=== PATIENT | female | born 1930 | race Caucasian/White ===

== ENCOUNTER 2016-11-30 08:00 | Outpatient (CLI) | payer MEDICARE | END 2016-11-30 08:01 | disposition home or self-care (01) | DX: E11.9 Type 2 diabetes mellitus without complications (principal) ==

== ENCOUNTER 2017-01-07 10:42 | Outpatient (CLI) | payer MEDICARE | END 2017-01-07 10:43 | disposition home or self-care (01) | DX: S92.512A Displaced fracture of proximal phalanx of left lesser toe(s), initial encounter for closed fracture (principal); M16.0 Bilateral primary osteoarthritis of hip; M19.072 Primary osteoarthritis, left ankle and foot; M79.89 Other specified soft tissue disorders; M79.672 Pain in left foot; R10.2 Pelvic and perineal pain; Z91.81 History of falling ==

== ENCOUNTER 2017-01-18 12:34 | Emergency (ER) | payer MEDICARE ==
[2017-01-18] MEDS ORDERED: ACETAMINOPHEN 325 MG TABLET PO STA (14:08)
[2017-01-18] MEDS ORDERED: traMADol 50 MG TABLET PO STA (14:09)
[2017-01-18] MEDS ORDERED: traMADol 50 MG TABLET PO ONE (14:10)
[2017-01-18] MEDS ORDERED: ACETAMINOPHEN 325 MG TABLET PO ONE (14:11)
[2017-01-18] MEDS ORDERED: RIVAROXABAN 15 MG TABLET PO STA (15:54)
[2017-01-18] MEDS ORDERED: HYDROcod/ACETAM 5/325 MG TABLET PO STA (15:56)
[2017-01-18] MEDS ORDERED: HYDROcod/ACETAM 5/325 MG TABLET ONE (16:05)
== END 2017-01-18 16:15 | disposition home or self-care (01) ==
DX: I82.4Z1 Acute embolism and thrombosis of unspecified deep veins of right distal lower extremity (principal); W01.10XA Fall on same level from slipping, tripping and stumbling with subsequent striking against unspecified object, initial encounter; I48.91 Unspecified atrial fibrillation; Z79.01 Long term (current) use of anticoagulants; I10 Essential (primary) hypertension; E11.9 Type 2 diabetes mellitus without complications; Z79.84 Long term (current) use of oral hypoglycemic drugs
CPT/HCPCS: 36415; 80053; 83690; 85025; 93971; 99283; 99284; A9270

== ENCOUNTER 2017-01-28 15:33 | Emergency (ER) | payer MEDICARE ==
[2017-01-28] MEDS ORDERED: SODIUM CHLORIDE 0.9% 500 ML IV ONE (17:51)
[2017-01-28] MEDS ORDERED: cefTRIAXone 1 GM in SODIUM CHLORIDE 0.9% MINIBAG 100 ML IV STA (17:56)
[2017-01-28] MEDS ORDERED: cefTRIAXone 1 GM VIAL ONE (18:04)
== END 2017-01-28 19:10 | disposition home or self-care (01) ==
DX: R22.42 Localized swelling, mass and lump, left lower limb (principal); N39.0 Urinary tract infection, site not specified; I10 Essential (primary) hypertension; I48.91 Unspecified atrial fibrillation; Z79.01 Long term (current) use of anticoagulants; E11.9 Type 2 diabetes mellitus without complications; Z79.84 Long term (current) use of oral hypoglycemic drugs; Z95.0 Presence of cardiac pacemaker; Z85.3 Personal history of malignant neoplasm of breast

== ENCOUNTER 2017-11-03 11:12 | Emergency (ER) | payer MEDICARE ==
[2017-11-03 11:17] VITALS: BP 176/100
--- NOTE | 2017-11-03 12:37 | ED Physician Documentation ---
History of Present Illness - Stated complaint Stated Complaint: R HAND SWOLLEN - Chief complaint Chief Complaint: Ext Problem - History obtained from History obtained from: Patient, Family - History of Present Illness Timing: Other (Without specific trauma she noted that she had difficulty bending the right fourth finger at the MCP about a month ago which got better but over the last day or 2 has had whole hand swelling on the right and now cannot bend any of the fingers because of pain in the proximal palm. There is no associated fevers, chills, shortness of breath, or chest pain.) Review of Systems Constitutional: denies: Fever, Chills Respiratory: reports: Reviewed and negative GI: reports: Reviewed and negative : reports: Reviewed and negative Skin: reports: Reviewed and negative PD PAST MEDICAL HISTORY - Past Medical History Past Medical History: Yes Cardiovascular: Hypertension, Atrial fibrillation, Other Respiratory: None Neuro: Headache/migraine Endocrine/Autoimmune: Type 2 diabetes GI: Chronic constipation MODEL MAKER: None, Breast cancer : Incontinence HEENT: Other Psych: Anxiety Musculoskeletal: Chronic back pain Derm: None - Past Surgical History Past Surgical History: Yes Ortho: Knee replacement, Shoulder arthroplasty, Spine surgery Cardiovascular: Pacemaker, Fempop bypass - Present Medications Home Medications: Ambulatory Orders Medication Instructions Recorded Confirmed Allopurinol 100 mg ORAL DAILY 06/17/15 11/03/17 Anastrozole 1 mg ORAL DAILY 06/17/15 11/03/17 Diltiazem HCl [Cartia Xt] 240 mg ORAL DAILY 06/17/15 11/03/17 Furosemide 40 mg ORAL DAILY 06/17/15 11/03/17 Gabapentin 100 mg ORAL DAILY 06/17/15 11/03/17 Glipizide [Glipizide ER] 2.5 mg ORAL DAILY 06/17/15 11/03/17 Potassium Chloride 10 meq ORAL DAILY 06/17/15 11/03/17 Ferrous Sulfate 1 tab ORAL DAILY 09/24/16 11/03/17 Hydrocodone/Acetaminophen [[place] 1 each PO TID PRN #20 tablet 01/18/17 11/03/17 5-325 Tablet] Rivaroxaban [Xarelto] 15 mg PO BID #42 tablet 01/18/17 11/03/17 Mirtazapine 15 mg PO DAILY 01/28/17 11/03/17 Omeprazole 40 mg PO DAILY 01/28/17 11/03/17 HYDROcod/ACETAM 5/325 [[place] 5/325] 1 - 2 ea PO Q6H PRN #10 tablet 11/03/17 metOLazone [Zaroxolyn] 2.5 mg PO DAILY PRN 11/03/17 11/03/17 - Allergies Allergies/Adverse Reactions: Allergies Allergy/AdvReac Type Severity Reaction Status Date / Time No Known Drug Allergies Allergy Verified 11/03/17 11:17 - Social History Does the pt smoke?: No Smoking Status: Never smoker Does the pt drink ETOH?: No Does the pt have substance abuse?: No - Family History Family history: reports: Non contributory - Immunizations Immunizations are current?: Yes - POLST Patient has POLST: No PD ED PE NORMAL - Vitals Vital signs reviewed: Yes - General General: Alert and oriented X 3, No acute distress - Extremities Extremities: Other (The right hand is tender dorsally over the mid carpals, and she has pain with forced extension but not flexion. Inversion and eversion is relatively painless. I can bend all the fingers back and forth without significant pain. She is swollen over the entirety of the dorsal surface of the hand to just proximal to the wrist. There is no warmth. There is no redness.) - Neuro Neuro: Alert and oriented X 3, Normal speech Results - Vitals Vitals: Vital Signs - 24 hr 11/03/17 11:14 Temperature 36.5 C Heart Rate 71 Respiratory 18 Rate Blood Pressure 176/100 H O2 Saturation 98 Oxygen O2 Source Room air - Labs Labs: Laboratory Tests 11/03/17 11/03/17 12:50 12:50 WBC 7.3 RBC 4.62 Hgb 12.8 Hct 39.2 MCV 84.7 MCH 27.8 MCHC 32.8 RDW 15.6 H Plt Count 122 L MPV 9.9 Neut # 5.9 Lymph # 0.8 L Da[place]hin # 0.4 Eos # 0.2 Baso # 0.1 Absolute Nucleated RBC 0.00 Nucleated RBC % 0.0 Sodium 139 Potassium 4.5 Chloride 102 Carbon Dioxide 26 Anion Gap 11.0 BUN 13 Creatinine 1.0 Estimated GFR (MDRD) 52 L Glucose 126 H Uric Acid 6.2 Calcium 9.7 C-Reactive Protein 3.9 H - Rads (name of study) R hand 3v Radiology: EMP read contemporaneously (marked OA) PD MEDICAL DECISION MAKING - ED course ED course: 87-year-old woman presents with atraumatic pain of the right hand and distal wrist, no evidence of infection based on history and physical. Seems like some sort of arthritis, lab work and exam suggest against an infection or inflammatory process, probably just a exacerbation of severe osteoarthritis. Departure - Departure Disposition: 01 Home, Self Care Clinical Impression: Arthritis of hand, right Condition: Good Record reviewed to determine appropriate education?: Yes Instructions: Osteoarthritis Prescriptions: HYDROcod/ACETAM 5/325 [[place] 5/325] 1 - 2 ea PO Q6H PRN #10 tablet PRN Reason: Pain Comments: You can take the prescription painkiller when pain is bad, if pain is only mild to try to stick to Tylenol. Return if worse. Follow-up with your doctor in a week. Your blood pressure was elevated today on check into the emergency department. This does not mean that you have hypertension, it is a common phenomenon to come to the emergency department and have elevated blood pressure. I recommend that you see your primary care physician within the week to have it rechecked when you are feeling better. Do not drink or drive while taking narcotic pain medication. Note that many narcotic pain relievers also contain Tylenol/acetaminophen. Please ensure that your total dose of acetaminophen from all sources does not exceed 3 g (3000 mg) per day. You may get constipated while on this medication. Take a stool softener such as Colace twice a day while you are on it. Also add an [id number] laxative such as senna or MiraLAX on any day that you do not have a bowel movement. If you received a narcotic pain medication or sedative while in the emergency department, do not drive for the next 24 hours.
[2017-11-03 12:57] LABS: BASOPHILS # (AUTO) 0.1 10^3/uL (0.0-0.1); BASOPHILS % (AUTO) 0.9 %; EOSINOPHILS # (AUTO) 0.2 10^3/uL (0.0-0.7); EOSINOPHILS % (AUTO) 2.8 %; HGB - HEMOGLOBIN 12.8 g/dL (12.0-16.0); LYMPHOCYTES # (AUTO) 0.8 10^3/uL (1.5-3.5); LYMPHOCYTES % (AUTO) 10.4 %; MEAN CORPUSCULAR HEMOGLOBIN 27.8 pg (27.0-31.0); MEAN CORPUSCULAR HGB CONC 32.8 g/dL (32.0-36.0); MEAN CORPUSCULAR VOLUME 84.7 fL (81.0-99.0); MEAN PLATELET VOLUME 9.9 fL (7.9-10.8); MONOCYTES # (AUTO) 0.4 10^3/uL (0.0-1.0); MONOCYTES % (AUTO) 5.5 %; NEUTROPHILS # (AUTO) 5.9 10^3/uL (1.5-6.6); NEUTROPHILS % (AUTO) 80.4 %; PLT - PLATELET COUNT 122 10^3/uL (130-450); RED BLOOD COUNT 4.62 10^6/uL (4.20-5.40); RED CELL DISTRIBUTION WIDTH 15.6 % (12.0-15.0); WHITE BLOOD COUNT 7.3 x10^3/uL (4.8-10.8)
[2017-11-03 13:14] LABS: CALCIUM 9.7 mg/dL (8.5-10.3); CRP - C-REACTIVE PROTEIN 3.9 mg/dL (0-1.0); URIC ACID 6.2 mg/dL (2.6-7.2)
--- NOTE | 2017-11-03 13:24 | XRAY Report ---
EXAM: RIGHT HAND RADIOGRAPHY EXAM DATE: 11/03/2017 12:56 PM. CLINICAL HISTORY: Hand pain. COMPARISON: None. TECHNIQUE: 3 views. FINDINGS: Bones: Marked osteopenia. Old ununited radial styloid process fracture. No acute fracture or other mika ne lesion. Joints: Marked degenerative changes in the DIP and PIP joints, with severe degenerative changes of th e first CMC joint. Mild narrowing of MCP joint spaces. No erosions. Chondrocalcinosis in the carpus. Soft Tissues: Soft tissue swelling. IMPRESSION: Marked osteoarthritis. [facility] Referring Provider Line: [phone] SITE ID: [id number]
== END 2017-11-03 13:49 | disposition home or self-care (01) ==
LOC: ED 11:12
DX: M19.041 Primary osteoarthritis, right hand (principal); I10 Essential (primary) hypertension; I48.91 Unspecified atrial fibrillation; Z79.01 Long term (current) use of anticoagulants; E11.9 Type 2 diabetes mellitus without complications; Z79.84 Long term (current) use of oral hypoglycemic drugs; Z85.3 Personal history of malignant neoplasm of breast; Z95.0 Presence of cardiac pacemaker
CPT/HCPCS: 36415; 80048; 84550; 85025; 86140; 99283

== ENCOUNTER 2018-05-04 09:03 | Outpatient (CLI) | payer MEDICARE ==
[2018-05-04 09:28] LABS: BASOPHILS % (AUTO) 0.4 %; EOSINOPHILS # (AUTO) 0.2 10^3/uL (0.0-0.7); HGB - HEMOGLOBIN 12.6 g/dL (12.0-16.0); LYMPHOCYTES # (AUTO) 0.5 10^3/uL (1.5-3.5); LYMPHOCYTES % (AUTO) 8.6 %; MEAN CORPUSCULAR HEMOGLOBIN 29.5 pg (27.0-31.0); MEAN CORPUSCULAR HGB CONC 32.9 g/dL (32.0-36.0); MEAN CORPUSCULAR VOLUME 89.6 fL (81.0-99.0); MEAN PLATELET VOLUME 10.1 fL (7.9-10.8); MONOCYTES # (AUTO) 0.3 10^3/uL (0.0-1.0); MONOCYTES % (AUTO) 5.2 %; NEUTROPHILS # (AUTO) 5.1 10^3/uL (1.5-6.6); NEUTROPHILS % (AUTO) 82.8 %; PLT - PLATELET COUNT 96 10^3/uL (130-450); RED BLOOD COUNT 4.26 10^6/uL (4.20-5.40); RED CELL DISTRIBUTION WIDTH 15.2 % (12.0-15.0); WHITE BLOOD COUNT 6.2 x10^3/uL (4.8-10.8)
[2018-05-04 09:34] LABS: ALBUMIN 3.1 g/dL (3.2-5.5); ALBUMIN/GLOBULIN RATIO 0.9 (1.0-2.2); ALKALINE PHOSPHATASE 126 IU/L (42-121); ALT ALANINE AMINOTRANSFERASE < 10 IU/L (10-60); AST ASPARTATE AMINOTRANSFERASE 21 IU/L (10-42); BILIRUBIN,TOTAL 0.6 mg/dL (0.2-1.0); BUN - BLOOD UREA NITROGEN 13 mg/dL (6-20); CALCIUM 8.8 mg/dL (8.5-10.3); CARBON DIOXIDE - CO2 25 mmol/L (21-32); CHLORIDE 103 mmol/L (101-111); GFR - MDRD 52 (>89); GLUCOSE 173 mg/dL (70-100); SODIUM 137 mmol/L (135-145); TOTAL PROTEIN 6.7 g/dL (6.7-8.2)
== END 2018-05-04 09:04 | disposition home or self-care (01) ==
LOC: LAB 09:03
PROVIDERS: ATTEND Internal Medicine Cardiovascular Disease
DX: I48.91 Unspecified atrial fibrillation (principal)
CPT/HCPCS: 36415; 80053; 85025

== ENCOUNTER 2018-05-29 14:06 | Outpatient (CLI) | payer MEDICARE ==
--- NOTE | 2018-05-29 15:21 | Ultrasound Report ---
Procedure Date: 05/29/2018 Accession Number: [id number] / [id number] Procedure: US - Breast Unilateral Limited CPT Code: FULL RESULT: EXAM: Breast Unilateral Limited DATE: 05/29/2018 3:11 PM CLINICAL HISTORY: MASTODYNIA COMPARISON: None. TECHNIQUE: Grayscale and limited color Doppler images of the tender left chest wall/region of prior mastectomy were obtained. FINDINGS: Underneath the scar a 4 mm x 4 mm x 3 mm cystic structure is identified with no flow on color Doppler. This finding corresponds to the focal area of tenderness. No solid mass is identified. IMPRESSION: The 4 mm collection deep to the chest wall scar corresponds to the patient's area of tenderness. There are no sonographic features to suggest abscess formation though this is not entirely excluded. Likely small seroma. [facility]
== END 2018-05-29 14:07 | disposition home or self-care (01) ==
LOC: DI 14:06
PROVIDERS: ATTEND Internal Medicine
DX: N64.4 Mastodynia (principal)
CPT/HCPCS: 76642

== ENCOUNTER 2018-05-29 14:40 | Outpatient (CLI) | payer MEDICARE | END 2018-05-29 14:41 | disposition home or self-care (01) | LOC: DI 14:40 | PROVIDERS: ATTEND Internal Medicine | DX: Z12.31 Encounter for screening mammogram for malignant neoplasm of breast (principal); N64.4 Mastodynia | CPT/HCPCS: 77067 ==

== ENCOUNTER 2018-07-13 11:15 | Outpatient (CLI) | payer MEDICARE ==
[2018-07-13] MEDS ORDERED: IOPAMIDOL-300 100 ML VIAL ONE (11:33)
[2018-07-13] MEDS ORDERED: IOPAMIDOL-300 50 ML VIAL ONE (11:33)
[2018-07-13] MEDS ORDERED: IOPAMIDOL-300 50 ML VIAL PO ONE (19:08)
[2018-07-13] MEDS ORDERED: IOPAMIDOL-300 100 ML VIAL IVP ONE (19:08)
--- NOTE | 2018-07-15 08:32 | CT Report ---
Reason: NAUSEA, VOMITING AND DIARRHEA X 1 WK Procedure Date: 07/13/2018 Accession Number: [id number] / [id number] Procedure: CT - Abdomen/Pelvis W/ CPT Code: FULL RESULT: EXAM: CT ABDOMEN AND PELVIS EXAM DATE: 07/13/2018 12:37 PM. CLINICAL HISTORY: NAUSEA, VOMITING AND DIARRHEA X 1 WK. COMPARISONS: 09/24/16. TECHNIQUE: Routine helical CT imaging was performed through the abdomen and pelvis. IV contrast: ISOVUE 300 100mL. Enteric contrast: Yes. Reconstructions: Coronal and sagittal. In accordance with CT protocol optimization, one or more of the following dose reduction techniques were utilized for this exam: automated exposure control, adjustment of mA and/or KV based on patient size, or use of iterative reconstructive technique. FINDINGS: Lung Bases: Unremarkable. Liver: No masses. Gallbladder/Bile Ducts: Cholelithiasis. Spleen: Normal. Pancreas: Normal. Adrenal Glands: Normal. Kidneys: No masses or hydronephrosis. Peritoneal Cavity/Bowel: No free air. Oral contrast seen in the stomach to the mid-small bowel. Dilated fluid-filled tubular structure in the right lower quadrant measures up to 1.9 cm (coronal series 5, image 31). Wall thickening and enhancement of the cecum and terminal ileum. Free fluid in the perihepatic, perisplenic, and pelvic regions. No focal fluid collection to suggest abscess. Colonic diverticulosis without evidence for acute diverticulitis. Pelvic Organs: The bladder and visualized pelvic organs are within normal limits. 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 Bones: Diffuse degenerative changes of the lumbosacral spine. Other: None. IMPRESSION: Dilated fluid-filled structure in the right lower quadrant, suggestive of appendicitis given lack of normal appearing appendix. Wall thickening and enhancement of the cecum and terminal ileum, which may be due to secondary inflammation versus cecitis/ileitis. Free fluid predominantly in the right lower quadrant. Findings discussed with at 8:20 AM on 07/15/18. 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 Additionally, there are nodular mesenteric implants measuring up to 0.7 cm (axial series 3, image 49) suggestive of carcinomatosis. Kike hepatis lymphadenopathy measuring up to 1.8 and 2.4 cm (image 25) and para-aortic lymphadenopathy measuring to 1.3 cm (image 39). Findings discussed with at 7:25 AM on 07/16/18.
== END 2018-07-13 11:16 | disposition home or self-care (01) ==
LOC: DI 11:15
PROVIDERS: ATTEND Internal Medicine
DX: R11.10 Vomiting, unspecified (principal); R19.7 Diarrhea, unspecified; R59.0 Localized enlarged lymph nodes; R92.8 Other abnormal and inconclusive findings on diagnostic imaging of breast; Z85.3 Personal history of malignant neoplasm of breast
CPT/HCPCS: 74177; 77065; Q9967

== ENCOUNTER 2018-07-13 11:19 | Outpatient (CLI) | payer MEDICARE ==
--- NOTE | 2018-07-13 17:30 | Mammography Report ---
Reason: ABN MAMMO - RT SPEC VIEWS Procedure Date: 07/13/2018 Accession Number: [id number] / [id number] Procedure: [place] - Diag Special Views Dig RT CPT Code: FULL RESULT: EXAM: Diag Special Views Dig RT DATE: 07/13/2018 1:35 PM CLINICAL HISTORY: Follow-up abnormal mammogram of 05/29/2018 TECHNIQUE: Additional spot compression and true lateral views of the right breast. COMPARISON: 05/29/2018 FINDINGS: The densities described on the prior mammogram report do not persist on additional views. IMPRESSION: Negative examination RECOMMENDATION: Follow-up routine screening mammogram in one year BIRADS CATEGORY 1: Negative STANDARD QUALIFYING STATEMENTS: 1. This examination was reviewed with the aid of Computer-Aided Detection (CAD). 2. A negative or benign imaging report should not delay biopsy if clinically suspicious findings are present. Consider surgical consultation if warrented. More than 5% of cancers are not identified by imaging. 3. Dense breasts may obscure an underlying neoplasm.
== END 2018-07-13 11:20 | disposition home or self-care (01) ==
LOC: DI 11:19
PROVIDERS: ATTEND Internal Medicine
DX: R92.8 Other abnormal and inconclusive findings on diagnostic imaging of breast (principal); Z85.3 Personal history of malignant neoplasm of breast

== ENCOUNTER 2018-09-07 08:24 | Outpatient (CLI) | payer MEDICARE ==
--- NOTE | 2018-09-07 16:26 | Ultrasound Report ---
Reason: APPENDIGEAL MASS W/LIKELY CARCINOMATOSIS Procedure Date: 09/07/2018 Accession Number: [id number] / [id number] Procedure: US - Abdomen Limited CPT Code: FULL RESULT: EXAM: ABDOMEN ULTRASOUND LIMITED, RUQ EXAM DATE: 09/07/2018 08:34 AM. CLINICAL HISTORY: Appendigeal mass with likely carcinomatosis. COMPARISON: ABDOMEN/PELVIS W/ 07/13/2018 12:33 PM. TECHNIQUE: Real-time scanning was performed with static images obtained. FINDINGS: Focal grayscale ultrasound was performed in correlation to a recently obtained CT abdomen and pelvis. The purpose of the study was to assess whether the suspected omental implants were amenable to ultrasound-guided core biopsy. In the periumbilical region, corresponding to the CT findings are multiple hypoechoic well-circumscribed suspicious appearing lesions measuring 0.8 and 0.9 cm respectively. These are concordant with the CT appearance and are amenable to ultrasound-guided biopsy. 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 [facility]
== END 2018-09-07 08:25 | disposition home or self-care (01) ==
LOC: DI 08:24
PROVIDERS: ATTEND Surgery
DX: K38.8 Other specified diseases of appendix (principal); C78.6 Secondary malignant neoplasm of retroperitoneum and peritoneum
CPT/HCPCS: 76705

== ENCOUNTER 2018-09-15 12:59 | Outpatient (CLI) | payer MEDICARE ==
--- NOTE | 2018-09-15 13:32 | CONSULTATION NOTE ---
Palliative Care Consultation - Referral Referring Provider: Dr. Arpan Pepe Time of Visit: [id number] Referral setting: Assisted living Referral Reason: Cancer of unknown origin/carcinomatosis - Information Sources Records reviewed: Previous records reviewed History/Review of Systems obtained from: Patient, Family (son Azael Toledo DPOA [facility]) Exam limitations: No limitations - History of Present Illness Brief History of Present Illness: This is an 87-year-old woman who presented with increasing abdominal discomfort and fullness. Patient was found through PCP to have right upper quadrant tenderness, and was scheduled for a CT scan on 07/13/2018. Patient was found to have suggestions of In to see ill carcinoma with involvement of the cecum. With nodular mesenteric implants, consistent with carcinomatosis, and this was confirmed with ultrasound on 09/07. She also presents with zachary hepatis lymphadenopathy measuring up to 1.8 x 2.4 cm and para-aortic lymphadenopathy measuring up to 1.3 cm. She has consulted with her PCP, surgeon, and given her advanced age and previous experiences has decided to focus on comfort only. She has decided not to proceed with a tissue biopsy, though is aware it was a possibility. Given she would not agree to any treatment in the future, her goals of care consistent with focus on comfort only, she is presenting with a cancer of unknown primary with carcinomatosis would recommend transition to hospice. She had had a negative healthcare experience, this has informed her decision making, couple years ago went for ablation and pacemaker placement, ended up with complications and in rehab, and wheelchair bound with significant loss of independence. She is quite pragmatic, and would like to just focus on quality of life, and not complicate things with procedures or further interventions. Patient presents with mild abdominal discomfort, only noted with pressure put on the right upper quadrant area. She has had no nausea and vomiting, she has intermittent gas pains, has not needed any pain medications. She is able to sleep, her bowels are moving on a regular basis, she uses prune juice twice a day with good relief. She is remarkable in the context that she herself has a history of breast cancer, with lumpectomy and hormone treatment. She also has a strong history and has lost 3 out of 4 sons to cancer diagnosis with the last one dying 2 years ago. Her remaining son Azael, is present for the visit. They have had recent experience with hospice with their [id number], do fill in the context of her goals, support for the family, all in agreement hospice approach and support would be of benefit and consistent with goals of care. Medical/Surgical History - Past Medical History Cardiovascular: reports: Congestive heart failure, Hypertension, Deep vein thrombosis, Pulmonary embolism, Atrial fibrillation, Other (hx of ablation) Respiratory: reports: None Neuro: Headaches, Migraines, Other (restless leg syndrome) Endocrine/Autoimmune: reports: Type 2 diabetes GI: reports: Chronic constipation TAG MARKER: reports: Breast cancer : reports: Incontinence HEENT: reports: Other Psych: reports: Anxiety Musculoskeletal: reports: Chronic back pain Derm: reports: None MRSA Hx?: No - Past Surgical History Ortho: reports: Knee replacement, Shoulder arthroplasty, Spine surgery Cardiovascular: reports: Pacemaker, Fempop bypass - Substance History Use: Uses substance without health or social issues: NONE Social History - Living Situation Living arrangement: Assisted living Living Situation: Alone Support System: Patient had lived in [facility], her about 10 years ago due to complications of his surgery. Patient had been living in senior apartments in [place], after a serious hospitalization with complications and leaving her mostly wheelchair-bound came to live near her youngest son Azael. She has been at [facility] since this time, she has made some good friends here. She has lost 3 of her 4 sons to cancer, as well as multiple siblings. Her last son about 2 years ago. Family History - Family History Family History: Mother: (multiple cancer dx has 6 siblings one brother remaining), Father: , Sister: , Brother: , Other family: Alive and Well (3 sons of cancer) Medications/Allergies - Medications Home Medications: Ambulatory Orders Medication Instructions Recorded Confirmed Allopurinol 100 mg ORAL DAILY 06/17/15 09/15/18 Anastrozole 1 mg ORAL DAILY 06/17/15 09/15/18 Furosemide 20 mg ORAL .Q2 DAYS 06/17/15 09/15/18 Gabapentin 100 mg ORAL DAILY 06/17/15 09/15/18 Glipizide [Glipizide ER] 2.5 mg ORAL DAILY 06/17/15 09/15/18 Potassium Chloride 10 meq ORAL DAILY 06/17/15 09/15/18 Ferrous Sulfate 1 tab ORAL DAILY 09/24/16 09/15/18 Mirtazapine 15 mg PO DAILY 01/28/17 09/15/18 Omeprazole 20 mg PO DAILY 01/28/17 09/15/18 HYDROcod/ACETAM 5/325 [[place] 5/325] 1 - 2 ea PO Q6H PRN #10 tablet 11/03/17 09/15/18 Acetaminophen 325 - 650 mg PO Q6HR PRN 09/15/18 09/15/18 Docusate Sodium 100 mg PO DAILY 09/15/18 09/15/18 Gabapentin 200 mg PO DAILY PM 09/15/18 09/15/18 Lisinopril 5 mg PO DAILY 09/15/18 09/15/18 Magnesium 250 mg PO DAILY 09/15/18 09/15/18 Methyl Salicylate/Menthol 1 patch TOP DAILY 09/15/18 09/15/18 [Salonpas Patch] Nystatin [Nystop] 1 applic TOP TID 09/15/18 09/15/18 Rivaroxaban [Xarelto] 10 mg PO DAILY 09/15/18 09/15/18 Senna [Senokot] 8.6 mg PO DAILY PRN 09/15/18 09/15/18 Simethicone [Gas Relief] 125 mg PO Q4HR PRN 09/15/18 09/15/18 - Allergies Allergies/Adverse Reactions: Allergies Allergy/AdvReac Type Severity Reaction Status Date / Time cephalexin [From Keflex] Allergy Unknown Verified 09/16/18 11:34 Review of Systems - Constitutional Constitutional: reports: Fatigue, Weight loss (patient thinks about 10 pounds last couple of months). denies: Fever, Chills - Eyes Eyes: reports: Vision loss - Ears, Nose & Throat Ears, Nose & Throat: reports: Hearing loss, Nasal congestion (hx of sinusitis/surgery) - Cardiovascular Cardiovascular: reports: Irregular heart rate, Edema, Decr. exercise tolerance. 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 denies: Memory problems - Psychiatric Psychiatric: denies: Depression, Anxiety - Hematologic/Lymphatic Hematologic/Lymphatic: reports: Recurrent infections (hx of UTIs; nothing recent). denies: Anemia - All Other Systems All Other Systems: reports: Reviewed and negative Physical Exam - Vital Signs Temperature: 97.8 C Pulse Rate: 72 Respiratory Rate: 18 O2 Saturation: 96 (ra @ rest) Blood Pressure: 128/68 - Physical Exam General Appearance: positive: No acute distress Eyes Bilateral: positive: Normal inspection ENT: positive: No signs of dehydration Neck: positive: No JVD, Trachea midline Cardiovascular: positive: Regular rate & rhythm Respiratory: positive: Diminished in bases. negative: Wheezes, Rales, Rhonchi Abdomen: positive: Soft, Tenderness (with palpation of RUQ; can palpate slightly mass; patient sitting in wheelchair;), Obese Skin: positive: Pallor, Dryness, Other (LLE with some scabbing; discoloration bilat of venous stais) Extremities: positive: Pedal edema (right greater than left; up to mid calf pitting; sits with legs down; tries to get up in recliner) Neurologic/Psychiatric: positive: Oriented x3, Mood/affect nml, Other (very engaged; KWIGILLINGOK but no confusion noted) Palliative Care - POLST Patient has POLST: Yes POLST Status: DNR, Comfort Measures (completed at visit; copy to facility) Pain: Pain unchanged, Location Tiredness/Fatigue: Moderate (4-6) Drowsiness/Sedation: Mild (1-3) Nausea: None Depression: None Anxiety: Mild (1-3) Dyspnea: Mild (1-3) Anorexia: Mild (1-3), Weight loss (weight 210 on 08/17) Sleep: Sleeps well (but sleeps in recliner; cannot lay flat) Constipation: Yes, Managed Feelings of wellbeing/Perceived Quality of Life: Fair, Acceptable, No change Performance Status: Patient mostly wheelchair bound, does need assistance with ambulation short distances for safety. She is able to pivot. She currently has been bathing independently, though this is quite tiring to her would benefit from assistance from home health aide, she is open to this. I would put her at a palliative care performance status at 60% - Palliative Care Discussion: Patients dpmichela is her son Azael Toledo [phone]. Patient has completed KOFI ST in the past, but given her current situation and defining goals of care we completed a new KOFI ST. Her goal is to focus on comfort, spending time with family, and end of life a comfortable respectful . She reports she is not afraid of dying, she does want to maintain her independence as much as possible. We discussed at length benefits of burdens moving forward with diagnosis, given patient's past experiences, it does inform her decision making today. Her [id number]-uzo's mother recently with hospice, she is aware of this is as a positive experience, and family is open to hospice support in their current situation. Results - Lab Results Lab results reviewed: Yes Impression and Recommendations - Palliative Care Impression: This is a pete 87-year-old woman who presents with advanced cancer of unknown primary, with known carcinomatosis, with low symptom burden currently. Patient does have multiple comorbidities, has had some weight loss, some increase in activity intolerance and some functional decline. Palliative care to facilitate conversation regarding goals of care, decision has been made to transition to hospice Recommendations/Counseling Done: 1. Constipation. Patient currently on MARIELLE, using prune juice twice a day. Reports moves bowels on a regular basis, is concerned about incontinence. Will need a active and supervised bowel regimen secondary to possible risk for obstruction. 2. Chronic back pain. This is long-standing chronic pain for patient, she uses topical salon poss with relief, she is also on gabapentin for both her back pain and restless leg syndrome. Patient currently satisfied with her regimen, no changes made. 3. Generalized weakness. Patient is fairly sedentary, has had some functional decline. Will benefit from support of home health aide for bathing. 4. Anorexia. Patient has had decreased intake, she reports about a 10 pound weight loss over the last couple months. She denies any nausea or any precipitating factors impacting this, just decreased appetite overall. She is mostly following a soft diet. 5. Advanced care planning. Patient presents with metastatic cancer, with carcinomatosis. Scans indicate most likely appendiceal, patient not choosing to move forward on any kind of diagnosis and/or treatment. New KOFI ST completed, given patient's goals of care, wanting to focus on comfort, and with family support will make a referral on to hospice. PCP Dr. Smith will be notified, and coordination of care patient request secondary to son's availability for hospice admit on Tuesday. This was shared with facility [facility] as well Time Spent: 60 minutes with greater than 50% of this done in counseling regarding goals of care, completing the KOFI ST, and anticipatory guidance
== END 2018-09-15 13:00 | disposition home or self-care (01) ==
LOC: PC 12:59
PROVIDERS: ATTEND Nurse Practitioner Adult Health
DX: Z51.5 Encounter for palliative care (principal); K59.00 Constipation, unspecified; G89.29 Other chronic pain; M40.209 Unspecified kyphosis, site unspecified; G25.81 Restless legs syndrome; M62.81 Muscle weakness (generalized); C80.0 Disseminated malignant neoplasm, unspecified; R63.0 Anorexia; R63.4 Abnormal weight loss; I11.0 Hypertensive heart disease with heart failure; I50.9 Heart failure, unspecified; E11.9 Type 2 diabetes mellitus without complications; C50.919 Malignant neoplasm of unspecified site of unspecified female breast; H91.90 Unspecified hearing loss, unspecified ear; Z79.811 Long term (current) use of aromatase inhibitors; Z95.0 Presence of cardiac pacemaker; Z80.9 Family history of malignant neoplasm, unspecified; Z66 Do not resuscitate; Z79.84 Long term (current) use of oral hypoglycemic drugs; Z79.899 Other long term (current) drug therapy